=== PATIENT | female | born 1995 | race Caucasian/White ===

== ENCOUNTER 2016-10-03 22:17 | Emergency (ER) | payer OTHER ==
[~2016-10-03] VITALS: Ht 172.7 cm; Wt 97.5 kg
[~2016-10-03 22:17] MED LIST: METHERGINE0.2 MG PO
[2016-10-03 23:09] LABS: HEMATOCRIT 40.9 % (36.0-46.0); MCH 27.8 PG (29.0-34.0); MCHC 32.8 G/DL (30.0-36.0); MCV 84.9 FL (83-99); MEAN PLAT.VOLUME 11.4 uM^3 (9.5-12.4); PLATELET COUNT 263 K/uL (156-360); RBC DIS.WIDTH-CV 13.8 % (11.8-14.6); RBC DIS.WIDTH-SD 43.3 % (39-53); RED BLOOD COUNT 4.82 M/uL (3.80-5.20); WHITE BLOOD COUNT 8.6 K/uL (4.1-10.2)
[2016-10-04 02:06] VITALS: BP 108/67
[2016-10-04] MEDS ORDERED: PRENATAL TABLE1 EAC3 PO (16:37)
== END 2016-10-04 02:08 | disposition home or self-care (01) ==
LOC: EXP 22:17 → EME 22:17 → EXP 10-04 02:08
DX: O03.4 Incomplete spontaneous abortion without complication (principal)
CPT/HCPCS: 76801; 81003; 84702; 85027; 99281; 99283

== ENCOUNTER → 2016-10-04 | Outpatient (CLI) | payer OTHER ==
[~2016-10-04] VITALS: Ht 172.7 cm; Wt 96.3 kg
[~2016-10-04] MED LIST changes: +PRENATAL TABLE1 EAC3 PO
[2016-10-04 16:34] VITALS: BP 118/63
== END | disposition home or self-care (01) ==
LOC: IVINF 16:00
DX: Z31.82 Encounter for Rh incompatibility status (principal); O03.9 Complete or unspecified spontaneous abortion without complication
CPT/HCPCS: 96372; J2790

== ENCOUNTER 2016-10-05 14:38 | Emergency (ER) | payer OTHER ==
[~2016-10-05] VITALS: Ht 172.7 cm; Wt 97.5 kg
[2016-10-05 15:09] LABS: HEMATOCRIT 41.3 % (36.0-46.0); MCHC 33.2 G/DL (30.0-36.0); MCV 84.5 FL (83-99); MEAN PLAT.VOLUME 11.1 uM^3 (9.5-12.4); PLATELET COUNT 228 K/uL (156-360); RBC DIS.WIDTH-CV 13.8 % (11.8-14.6); RBC DIS.WIDTH-SD 42.5 % (39-53); RED BLOOD COUNT 4.89 M/uL (3.80-5.20); WHITE BLOOD COUNT 10.4 K/uL (4.1-10.2)
[2016-10-05 15:18] LABS: CHLORIDE 104 mEq/L (99-109); SODIUM 136 mEq/L (136-147)
[2016-10-05 15:20] LABS: GLUCOSE 91 mg/dL (70-99)
[2016-10-05 15:22] LABS: ANION GAP 11 MEQ/L (2-14)
[2016-10-05 15:24] LABS: GFR ESTIMATE (CALCULATED) > 59 mL/min/
[2016-10-05 15:25] LABS: UREA NITROGEN (BUN) 9 mg/dL (9-23)
[2016-10-05 17:44] VITALS: BP 127/77
== END 2016-10-05 17:46 | disposition home or self-care (01) ==
LOC: EME 14:38
PROVIDERS: Emergency Medicine
DX: O03.9 Complete or unspecified spontaneous abortion without complication (principal)
CPT/HCPCS: 76856; 80048; 85027; 86900; 86901; 99281; 99285; J7030

== ENCOUNTER 2017-06-13 17:14 | Emergency (ER) | payer OTHER ==
[~2017-06-13] VITALS: Ht 172.7 cm; Wt 96.6 kg
[2017-06-13 18:05] LABS: HEMATOCRIT 43.7 % (36.0-46.0); HEMOGLOBIN 14.7 G/DL (11.9-15.5); MCH 28.1 PG (29.0-34.0); MCHC 33.6 G/DL (30.0-36.0); MCV 83.6 FL (83-99); PLATELET COUNT 204 K/uL (156-360); RBC DIS.WIDTH-CV 13.1 % (11.8-14.6); RBC DIS.WIDTH-SD 40.2 % (39-53); RED BLOOD COUNT 5.23 M/uL (3.80-5.20); WHITE BLOOD COUNT 4.1 K/uL (4.1-10.2)
[2017-06-13 18:12] LABS: APPEARANCE SL.HAZY ((CLEAR)); BILIRUBIN NEGATIVE; BLOOD NEGATIVE; COLOR YELLOW ((YELLOW)); GLUCOSE (STRIP) NEGATIVE; KETONES NEGATIVE; LEUKOCYTES TRACE; NITRITE NEGATIVE; PROTEIN (STRIP) NEGATIVE; SPECIFIC GRAVITY 1.019 (1.000-1.030); UROBILINOGEN 0.2 MG/DL (0.2-1.0)
[2017-06-13 18:17] LABS: ALBUMIN 4.4 G/DL (3.2-4.8); CHLORIDE 106 MEQ/L (99-109); POTASSIUM 4.1 MEQ/L (3.7-5.4); SODIUM 139 MEQ/L (136-147); TOTAL BILIRUBIN 0.3 MG/DL (0.0-1.0)
[2017-06-13 18:17] LABS: BACTERIA NONE SEEN /HPF; EPITHELIAL CELLS 1+ /HPF; MUCUS TRACE /LPF; RED BLOOD CELLS 0-5 /HPF (0-5); UCUL ADDED? NO; WHITE BLOOD CELLS 0-5 /HPF (0-5)
[2017-06-13 18:23] LABS: ALKALINE PHOSPHATASE 79 IU/L (3-129); ALT (GPT) 12 IU/L (3-49); AST (GOT) 16 IU/L (2-34); CREATININE 0.7 MG/DL (0.6-1.3); GFR ESTIMATE (CALCULATED) > 59 mL/min/; GLUCOSE 97 mg/dL (70-99); TOTAL PROTEIN 7.7 G/DL (6.4-8.3); UREA NITROGEN (BUN) 11 mg/dL (9-23)
[2017-06-13 18:25] LABS: QUANTITATIVE HCG < 4.0 MIU/ML
[2017-06-13 19:52] LABS: TROP-I INTERPRETATION NEGATIVE; TROPONIN-I < 0.01 ng/mL (0.0-0.30)
[2017-06-13] MEDS ORDERED: VENTOLIN HFA18 GM IH (22:11)
[2017-06-13] MEDS ORDERED: TESSALON PERLE100 MG PO (22:11)
[2017-06-13 22:29] VITALS: BP 122/91
== END 2017-06-13 22:29 | disposition home or self-care (01) ==
LOC: EME 17:14 → EXP 17:14
PROVIDERS: Physician Assistant
DX: J10.1 Influenza due to other identified influenza virus with other respiratory manifestations (principal); R42 Dizziness and giddiness; R55 Syncope and collapse
CPT/HCPCS: 71046; 80053; 81003; 84443; 84484; 84702; 85027; 85379; 87502; 93005; 99281; 99285

== ENCOUNTER → 2017-07-27 | Outpatient (CLI) | payer OTHER ==
[~2017-07-27] VITALS: Ht 172.7 cm; Wt 98.1 kg
[~2017-07-27] MED LIST changes: +TESSALON PERLE100 MG PO; +VENTOLIN HFA18 GM IH
[2017-07-27 18:03] VITALS: BP 121/79
== END | disposition home or self-care (01) ==
LOC: IVINF 17:30
DX: O46.90 Antepartum hemorrhage, unspecified, unspecified trimester (principal); Z3A.00 Weeks of gestation of pregnancy not specified
CPT/HCPCS: 96372